=== PATIENT | male | born 1975 | race African-American/Black ===

== ENCOUNTER 2022-03-16 09:28 | Emergency (ER) | payer SELFPAY ==
[2022-03-16 09:36] VITALS: BP 136/69; BP 140/72; PULSE 68; PULSE 87; RESP 18; TEMP 37.2; O2SAT 92; O2SAT 96; BMI 26.9
--- NOTE | 2022-03-16 09:41 | ED.GENADULT ---
HPI - General Adult General Chief complaint: ETOH/Substance Use Stated complaint: syncope Time Seen by Provider: 03/16/22 09:41 Source: patient and EMS Mode of arrival: EMS Limitations: no limitations PMF Social History Social History Substance Use Type: Marijuana Physical Exam ED Vital Signs: Vital Signs - 24 hr 03/16/22 09:36 Temperature 98.9 F Pulse Rate 87 Respiratory Rate 18 Blood Pressure 136/69 Pulse Oximetry 92 Oxygen Delivery Method Room Air BMI result Body Mass Index 26.9
--- NOTE | 2022-03-16 10:02 | PC.NURSE ---
upon EMS arrival, pt standing in [place] stating he did not need to be here and wanted to be d/c. 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 pt cooperative but stating multiple times that he wanted to leave. this rn attempted to notify the provider of pts wishes, when t/w returned, pt was gone. notified by extension service specialist in charge that she witnessed pt walking out of the ER. PAZ Galloway made aware.
== END 2022-03-16 10:04 | disposition left against medical advice (07) ==
PROVIDERS: Emergency Provider Emergency Medicine
DX: R55 Syncope and collapse (principal)
CPT/HCPCS: 99281; 99283